=== PATIENT | female | born 1960 | race Caucasian/White ===

== ENCOUNTER 2019-12-29 16:18 | Outpatient (CLI) | payer BC, SELFPAY ==
--- NOTE | ~2019-12-29 | MM_ITS ---
EXAMINATION: MM screening [facility] BI w ava HISTORY: Screening TECHNIQUE: Craniocaudal and mediolateral oblique 3-D tomosynthesis images were obtained and synthetic 2-D images were generated. CAD analysis was submitted and interpreted. COMPARISON: Comparison to multiple prior studies sequentially, with oldest reviewed study dated 12/21. BREAST PARENCHYMAL COMPOSITION: The breasts are extremely dense, which lowers the sensitivity of mamm ography. FINDINGS: There is no evidence of suspicious mass, calcification, or architectural distortion to sugg est malignancy in either breast. There has been no suspicious interval change. IMPRESSION: 1. No mammographic evidence of malignancy. 2. Recommend routine screening mammography in one year. BI-RADS Category 1: Negative Reviewed, dictated and finalized at location A.
== END 2019-12-29 16:19 | disposition home or self-care (01) ==
PROVIDERS: PCP Family Medicine; Visit Provider Nurse Practitioner
DX: Z12.31 Encounter for screening mammogram for malignant neoplasm of breast (principal)
CPT/HCPCS: 77063; 77067

== ENCOUNTER 2021-01-07 07:57 | Outpatient (CLI) | payer BC, SELFPAY ==
--- NOTE | ~2021-01-07 | MM_ITS ---
EXAMINATION: MM screening [facility] BI w ava HISTORY: Screening mammogram TECHNIQUE: Craniocaudal and mediolateral oblique 3-D tomosynthesis images were obtained and synthetic 2-D images were generated. CAD analysis was submitted and interpreted. COMPARISON: No prior mammogram is available for comparison at this institution. BREAST PARENCHYMAL COMPOSITION: The breasts are extremely dense, which lowers the sensitivity of mamm ography. FINDINGS: There is no evidence of suspicious mass, calcification, or architectural distortion to sugg est malignancy in either breast. There has been no suspicious interval change. IMPRESSION: 1. No mammographic evidence of malignancy. 2. Recommend routine screening mammography in one year. BI-RADS Category 1: Negative Reviewed, dictated and finalized at location A.
== END 2021-01-07 07:58 | disposition home or self-care (01) ==
PROVIDERS: PCP Family Medicine; Visit Provider Nurse Practitioner
DX: Z12.31 Encounter for screening mammogram for malignant neoplasm of breast (principal)
CPT/HCPCS: 77063; 77067

== ENCOUNTER 2021-02-11 07:51 | Outpatient (CLI) | payer BC, SELFPAY ==
--- NOTE | ~2021-02-11 | DEXA_ITS ---
Bone Density Report Name: Christa Craft Age: 60 Sex: Female Ethnicity: White Date of : 1960 Indication: osteopenia; parental hip fracture; postmenopausal Referring Provider: Zohra, Nirmala Study: Bone densitometry was performed. Exam Date: February 11, 2021 Accession number: [id number] Bone Density: Region BMD T-score Z-score Classification AP Spine (L1-L4) 0.846 -1.8 -0.4 Osteopenia Femoral Neck (Left) 0.622 -2.0 -0.7 Osteopenia Total Hip (Left) 0.727 -1.8 -0.8 Osteopenia Total Hip Bilateral Avg 0.736 -1.7 -0.7 Osteopenia Femoral Neck (Right) 0.656 -1.7 -0.4 Osteopenia Total Hip (Right) 0.744 -1.6 -0.6 Osteopenia World Health Organization criteria for BMD impression classify patients as: Normal (T-score at or above -1.0), Osteopenia (T-score between -1.0 and -2.5), or Osteoporosis (T-score at or below -2.5). 10-year Fracture Risk(1): Major Osteoporotic Fracture 16% Hip Fracture 1.3% Reported Risk Factors: [place] (), Neck BMD=0.622, BMI=19.1, parental fracture (1) FRAX(R) Version 3.08. Fracture probability calculated for an untreated patient. Fracture probability may be lower if the patient has received treatment. Previous Exams: Region Exam Age BMD T-score BMD Change BMD Change Date g/cm2 vs Baseline vs Previous AP Spine(L1-L4) 02/11/2021 60 0.846 -1.8 -0.032(-3.6%)* -0.032(-3.6%)* 12/13/2018 58 0.877 -1.5 Total Hip(Left) 02/11/2021 60 0.727 -1.8 -0.059(-7.5%)* -0.059(-7.5%)* 12/13/2018 58 0.786 -1.3 Total Hip(Right) 02/11/2021 60 0.744 -1.6 -0.049(-6.2%)* -0.049(-6.2%)* 12/13/2018 58 0.794 -1.2 *Denotes significance at 95% confidence level, LSC for AP Spine = 0.022 g/cm2, LSC for Total Hip = 0.027 g/cm2 Clinical Information Provided by Patient: Parent has had a hip fracture Has used the following medications: Calcium Patient maximum height was 60 Menopause Age: 56 Drinks caffeinated beverages Onset of menses at age 13 Number of children 1 Impression: The patient has low bone mass, based on the Left Femoral Neck T-score. The patient has an estimated ten-year risk of hip fracture of 1.3% and an estimated ten-year risk of major fracture of 16%, based on the WHO FRAX algorithm. The patient has risk factors, including: parental hip fracture. The BMD for the AP Spine(L1-L4) decreased, changing by -3.6% since the last DXA exam. The BMD for the Total Hip(Left) decreased, changing by -7.5% since the las
== END 2021-02-11 07:52 | disposition home or self-care (01) ==
LOC: ANHIMG 07:56
PROVIDERS: PCP Family Medicine; Visit Provider Nurse Practitioner
DX: M85.88 Other specified disorders of bone density and structure, other site (principal); M85.852 Other specified disorders of bone density and structure, left thigh; M85.851 Other specified disorders of bone density and structure, right thigh
CPT/HCPCS: 77080

== ENCOUNTER 2022-02-17 08:24 | Outpatient (CLI) | payer BC, SELFPAY ==
--- NOTE | ~2022-02-17 | MM_ITS ---
EXAMINATION: MM screening [facility] BI w ava HISTORY: Screening mammogram TECHNIQUE: Craniocaudal and mediolateral oblique 3-D tomosynthesis images were obtained and synthetic 2-D images were generated. CAD analysis was submitted and interpreted. COMPARISON: 01/07/2021, 12/29/2019, 12/13/2018 BREAST PARENCHYMAL COMPOSITION: The breasts are heterogeneously dense, which may obscure small masses . FINDINGS: No suspicious mass, calcification, or architectural distortion are identified in either xu ast to suggest malignancy. There has been no suspicious interval change. IMPRESSION: 1. No mammographic evidence of malignancy. 2. Recommend routine screening mammography in one year. BI-RADS Category 1: Negative Reviewed, dictated and finalized at location A. ES ASSISTANT
== END 2022-02-17 08:25 | disposition home or self-care (01) ==
LOC: ANHIMG 08:26
PROVIDERS: PCP Family Medicine; Visit Provider Nurse Practitioner
DX: Z12.31 Encounter for screening mammogram for malignant neoplasm of breast (principal)
CPT/HCPCS: 77063; 77067

== ENCOUNTER 2023-04-09 08:12 | Outpatient (CLI) | payer BC, SELFPAY ==
--- NOTE | ~2023-04-09 | MM_ITS ---
EXAMINATION: MM screening [facility] BI w ava HISTORY: Screening TECHNIQUE: Craniocaudal and mediolateral oblique 3-D tomosynthesis images were obtained and synthetic 2-D images were generated. CAD analysis was submitted and interpreted. COMPARISON: Comparison to multiple prior studies sequentially, with oldest reviewed study dated 12/01. BREAST PARENCHYMAL COMPOSITION: The breasts are extremely dense, which lowers the sensitivity of mamm ography FINDINGS: There is no evidence of suspicious mass, calcification, or architectural distortion to sugg est malignancy in either breast. There has been no suspicious interval change. IMPRESSION: 1. No mammographic evidence of malignancy. 2. Recommend routine screening mammography in one year. BI-RADS Category 1: Negative Reviewed, dictated and finalized at location A. ING MACHINE OPERATOR
== END 2023-04-09 08:13 | disposition home or self-care (01) ==
PROVIDERS: PCP Family Medicine; Visit Provider Nurse Practitioner
DX: Z12.31 Encounter for screening mammogram for malignant neoplasm of breast (principal)
CPT/HCPCS: 77063; 77067

== ENCOUNTER 2024-05-17 15:07 | Outpatient (CLI) | payer BC, SELFPAY ==
--- NOTE | ~2024-05-17 | MM_ITS ---
EXAMINATION: MM screening padilla BI w ava HISTORY: Screening mammogram TECHNIQUE: Craniocaudal and mediolateral oblique 3-D tomosynthesis images were obtained and synthetic 2-D images were generated. CAD analysis was submitted and interpreted. COMPARISON: 04/09/2023, 02/17/2022, 01/07/2021, 12/29/2019 BREAST PARENCHYMAL COMPOSITION:Dense: The breasts are extremely dense, which lowers the sensitivity o f mammography. FINDINGS: No suspicious mass, calcification, or architectural distortion are identified in either xu ast to suggest malignancy. There has been no suspicious interval change. IMPRESSION: No mammographic evidence of malignancy. Recommend routine screening mammography in one year. BI-RADS Category 1: Negative Reviewed, dictated and finalized at location . TECHNICIAN
--- OUTSIDE RECORDS SUMMARY | 2024-05-17 17:38 | XMS_ITS | Encounter Summary ---
Author Organization [facility] Address [address] [place] [address] Care Team Providers Care Floor Finisher Helper Name Role Phone Remberto Esparza MD Primary Care Provider [phone] Encounter Details Date Type Department Care Team (Late st Contact Info) Description 02/25/2024 Lab Requisition [facility] - DermPath Lab [address] [place] [id number] Mary Poon MD [address] [facility] [facility] [address] [place] [address] Social History Tobacco Use Types Packs/Day Years Used Date Smoking Tobacco: Never Smokeless Tobacco: Never Sex and Gender Information Value Date Recorded Sex Assigned at Not on file Gender Identity Not on file Sexual Orientation Not on file documented as of this encounter Plan of Treatment Not on file documented as of this encounter Procedures Procedure Name Priority Date/Time Associated Diagnosis Comments DERMATOPATHOLOGY Routine 02/25/2024 10:2 2 AM THEATER EDUCATION TEACHER documented in this encounter Results * DERMATOPATHOLOGY (02/25/2024 10:22 AM THEATER EDUCATION TEACHER) Case Report Dermatopathology Report Case: [id number] Authorizing Provider: Mary Poon MD Collected: 02/25/2024 10:22 AM Ordering Location: [facility] - Received: 02/26/2024 06:52 AM DermPath Lab Pathologist: Stephani Zayas MD Specimen: Skin, left chest 11:26 AM THEATER EDUCATION TEACHER DERMATOPATHOLOGY LABORATORY Final Diagnosis Specimen A. SKIN, left chest: LICHEN PLANUS-LIKE KERATOSIS (BENIGN LICHENOID KERATOSIS) (L82.1) 11:[address] [facility] DERMATOPATHOLOGY LABORATORY Clinical History R/O BCC 11:[address] [facility] DERMATOPATHOLOGY LABORATORY Gross Description Specimen A: Received is one formalin filled container labeled with the patient's name and designated left chest. The specimen consists of a shave biopsy measuring 4x4x1 mm. Jar 0. 11:[address] [facility] DERMATOPATHOLOGY LABORATORY Microscopic Description Specimen A. SKIN, left chest: The epidermis is mildly acanthotic. There is a lichenoid infiltrate with vacuolar changes of basilar keratinocytes and scattered necrotic keratinocytes. 11:[address] [facility] DERMATOPATHOLOGY LABORATORY Disclaimer An external and internal positive and negative controls are appropriate for the histochemical, immunohistochemical and immunofluorescence stain(s) in this case (if any), except where stated explicitly. The performance characteristics of the stain(s) cited in this report were developed and its performance characteristic determined by the Dermatopathology Laboratory at [facility], directed by Dr. Yareli Parks. These tests need not be, and therefore are not, approved by the [place] Food and Drug Administration. The tests are used for clinical purposes. Billing Codes Specimen Charges Stain Charges 22660 1 11:[address] [facility] DERMATOPATHOLOGY LABORATORY Embedded Images 11:[address] [facility] DERMATOPATHOLOGY LABORATORY Pathology/Cytolo gy TISSUE SPECIMEN FROM SKIN / Unknown 02/25/2024 10:22 AM THEATER EDUCATION TEACHER 02/26/2024 6:[address] [facility] Mary Poon MD LAB - PATHOLOGY/CYTO LOGY ORDERABLES DERMATOPATHOLOGY LABORATORY [facility] - Department of Dermatology [address], [address] [phone] documented in this encounter Visit Diagnoses Not on filedocumented in this encounter Care Teams Floor Finisher Helper Relationship Specialty Start Date End Date Remberto Esparza MD [address] [place] [address] PCP - General Family Medicine 01/27/17 documented as of this encounter
--- OUTSIDE RECORDS SUMMARY | 2024-05-17 17:38 | XMS_ITS | Patient Health Summary ---
Author Organization [facility] Address [address] [place] [address] Care Team Providers Care Automatic I Threading Machine Feeder Name Role Phone Remberto Esparza MD Primary Care Provider [phone] Note from [facility] [place],non-owned Affiliates and Associated Physician Practices is amultiple site organization consisting of ambulatory clinics and hospital sitesin [place], [place], [place] and [place]. This disclosure is being madepursuant to the Care Everywhere program and may not contain all information available regarding this patient. Last updated 17.[facility] [employer] Allergies * Ciprofloxacin(Dizziness) Medications Be aware that medications may not be up to date on this document. Always verify current medications with the patient. No known medications Social History Tobacco Use Types Packs/Day Years Used Date Smoking Tobacco: Never Smokeless Tobacco: Never Sex and Gender Information Value Date Recorded Sex Assigned at Not on file Gender Identity Not on file Sexual Orientation Not on file Last Filed Vital Signs Vital Sign Reading Time Taken Comments Blood Pressure 120/62 06/15/2018 9:36 AM CDT Pulse 90 06/15/2018 9:36 AM CDT Temperature 37.1 C (98.7 F) 06/15/2018 9:36 AM CDT Respiratory Rate 16 06/15/2018 9:36 AM CDT Oxygen Saturation 99% 06/15/2018 9:36 AM CDT Inhaled Oxygen Concentration - - Weight 45.4 kg (100 lb) 06/15/2018 9:36 AM CDT Height 152.4 cm (5') 06/15/2018 9:36 AM CDT Body Mass Index 19.53 06/15/2018 9:36 AM CDT Procedures * DERMATOPATHOLOGY(Performed 02/25/2024) * DERMATOPATHOLOGY(Performed 07/25/2021) * URINALYSIS AUTO - POINT OF CARE (AMB) STL(Performed 06/15/2018) Performed for Acute cystitis with hematuria * CULTURE URINE(Performed 06/15/2018) Performed for Acute cystitis with hematuria * STREP A SCREEN - POINT OF CARE (AMB) STL(Performed 03/30/2018) Performed for Acute serous otitis media of left ear, recurrence not specified * SKIN TEST PPD - POINT OF CARE(Performed 01/07/2018) Performed for Encounter for PPD test Results * DERMATOPATHOLOGY (02/25/2024 10:22 AM [facility]) Only the most recent of2 resultswithin the time period is included. Case Report Dermatopathology Report Case: [id number] Authorizing Provider: Mary Poon MD Collected: 02/25/2024 10:22 AM Ordering Location: [facility] - Received: 02/26/2024 06:52 AM DermPath Lab Pathologist: Stephani Zayas MD Specimen: Skin, left chest 11:26 AM [facility] DERMATOPATHOLOGY LABORATORY Final Diagnosis Specimen A. SKIN, left chest: LICHEN PLANUS-LIKE KERATOSIS (BENIGN LICHENOID KERATOSIS) (L82.1) 11:26 AM [facility] DERMATOPATHOLOGY LABORATORY Clinical History R/O BCC 11:26 AM [facility] DERMATOPATHOLOGY LABORATORY Gross Description Specimen A: Received is one formalin filled container labeled with the patient's name and designated left chest. The specimen consists of a shave biopsy measuring 4x4x1 mm. Jar 0. 11:26 AM [facility] DERMATOPATHOLOGY LABORATORY Microscopic Description Specimen A. SKIN, left chest: The epidermis is mildly acanthotic. There is a lichenoid infiltrate with vacuolar changes of basilar keratinocytes and scattered necrotic keratinocytes. 11:26 AM [facility] DERMATOPATHOLOGY LABORATORY Disclaimer An external and internal positive and negative controls are appropriate for the histochemical, immunohistochemical and immunofluorescence stain(s) in this case (if any), except where stated explicitly. The performance characteristics of the stain(s) cited in this report were developed and its performance characteristic determined by the Dermatopathology Laboratory at [facility], directed by Dr. Yareli Parks. These tests need not be, and therefore are not, approved by the [place] Food and Drug Administration. The tests are used for clinical purposes. Billing Codes Specimen Charges Stain Charges 50182 1 4 11:26 AM BELL HOLE DIGGER DERMATOPATHOLOGY LABORATORY Embedded Images 4 11:26 AM [facility] DERMATOPATHOLOGY LABORATORY Pathology/Cytolo gy TISSUE SPECIMEN FROM SKIN / Unknown 02/25/2024 10:22 AM BELL HOLE DIGGER 02/26/2024 6:52 AM BELL HOLE DIGGER Mary Poon MD LAB - PATHOLOGY/CYTO LOGY ORDERABLES DERMATOPATHOLOGY LABORATORY [facility] Department of Dermatology [address], [address] [phone] * URINALYSIS AUTO - POINT OF CARE (AMB) STL (06/15/2018 9:50 AM CDT) Clarity UA POCT clear Color UA POCT yellow Leukocyte UA 70+ Negative Nitrite UA POCT negative Negative Urobilinogen UA 0.2 0.1 - 1.0 Protein UA POCT trace Negative pH UA 6.5 5.0 - 8.0 pH units Blood UA 5-10 Negative Specific [place] UA POCT 1.005 1.002 - 1.030 Ketone UA negative Negative Bilirubin UA POCT negative Negative Glucose UA negative Negative Expiration Date 12 13 2019 Lot # [id number] QC Verified Yes Yes Urine URINE / Unknown 06/15/2018 9 :50 AM CDT Carroll Hoover APRN-SHARON LAB - POINT OF CA RE ORDERABLES * (ABNORMAL) CULTURE URINE (06/15/2018 9:50 AM CDT) Urine Culture Routine Final report(A) [facility] INSURANCE BILL Result 1 Escherichia coli(A) [facility] INSURANCE BILL Comment: 25,000-50,000 colony forming units per mL Cefazolin <=4 ug/mL Cefazolin with an NICK <=16 predicts susceptibility to the oral agents cefaclor, cefdinir, cefpodoxime, cefprozil, cefuroxime, cephalexin, and loracarbef when used for therapy of uncomplicated urinary tract infections due to E. coli, Klebsiella pneumoniae, and Proteus mirabilis. Antimicrobial Susceptibility [facility] INSURANCE BILL Comment: S = Susceptible; I = Intermediate; R = Resistant P = Positive; N = Negative MICS are expressed in micrograms per mL Antibiotic RSLT#1 RSLT#2 RSLT#3 RSLT#4 Amoxicillin/Clavulanic Acid S Ampicillin S Cefepime S Ceftriaxone S Cefuroxime S Ciprofloxacin S Ertapenem S Gentamicin S Imipenem S Levofloxacin S Meropenem S Nitrofurantoin S Piperacillin/Tazobactam S Tetracycline S Tobramycin S Trimethoprim/Sulfa S Urine URINE SPECIMEN OBTAINED BY CLEAN CATCH PROCEDURE / Unknown 06/15/2018 9:50 AM CDT 06/15/2018 Narrative Resulting Agency Comment [facility] [address] [id number] Carroll FONTENOT LAB - MICROBIOLOG Y ORDERABLES [facility] INSURANCE BILL [address] [place] [address] * STREP A SCREEN - POINT OF CARE (AMB) STL (03/30/2018 10:42 AM BELL HOLE DIGGER) Strep A Rapid POCT Negative Negative Strep A Internal Control Present Lot # [id number] Expiration Date Throat ENTIRE THROAT (SURFACE REGION OF NECK) / Unknown 03/30/2018 10:42 AM BELL HOLE DIGGER Carroll FONTENOT LAB - POINT OF CA RE ORDERABLES * SKIN TEST PPD - POINT OF CARE (01/07/2018 11:38 AM CDT) PPD 0mm normal, ppd placed on 01/05/18 @ 10am, ppd read on 01/07/18 @ 11:36am Other MISCELLANEOUS SAMPLE S / Unknown 01/07/2018 11:38 AM CDT Meaghan Gentile CAR CARDER-ACTUARY MANAGER LAB - POINT OF CA RE ORDERABLES Care Teams Automatic I Threading Machine Feeder Relationship Specialty Start Date End Date Remberto Esparza MD [address] [place] [address] PCP - General Family Medicine 01/27/17
--- OUTSIDE RECORDS SUMMARY | 2024-05-17 17:38 | XMS_ITS | Clinical Summary ---
Author Organization [facility] Address [address] [place] [address] Care Team Providers Care Recovery Analyst Name Role Phone Remberto Esparza MD Primary Care Provider Source Comments [facility],non-owned Affiliates and Associated Physician Practices is amultiple site organization consisting of ambulatory clinics and hospital sitesin [place], [place] and [place]. This disclosure is being madepursuant to the Care Everywhere program and may not contain all information available regarding this patient. Last updated 17.[facility] Allergies Active Allergy Reactions Criticality Noted Date Comments Ciprofloxacin Dizziness 06/15/2018 Elevated heart rate and dizziness Medications Be aware that medications may not be up to date on this document. Always verify current medications with the patient. No known medications Encounters Date Type Department Care Team Description 02/25/2024 Lab Requisition [facility] - DermPath Lab [address] [place] [phone] Mary Poon MD from Last 3 Months Family History Medical History Relation Name Comments Cancer - Lung Father Relation Name Status Comments Father Social History Tobacco Use Types Packs/Day Years [...] Mass Index 19.53 06/15/2018 9:36 AM CDT Plan of Treatment Health Maintenance Due Date Last Done Comments COLOGUARD (AGES 45-75) - COL ON CA SCREENING 1960 COLON MONITORING 1960 COLONOSCOPY - COLON CA SCREENING 1960 CT COLONOGRAPHY - COLON CA SCREENING 1960 Colorectal Cancer Screening 1960 FIT - COLON CA SCREENING 1960 FLEX SIG - COLON CA SCREENING 1960 LIPID TESTING 1960 MAMMOGRAM 1960 PAP SMEAR 1960 HIV SCREENING 06/26/1975 HEPATITIS C SCREENING 06/21/1978 DTAP/TDAP/TD VACCINES (1 - Tdap) 06/26/1979 PNEUMOCOCCAL VACCINE 50+ (1 of 1 - PCV) 2010 ZOSTER VACCINE (1 of 2) 2010 COVID-19 VACCINE ( - 2023-2 5 season) 2023 INFLUENZA VACCINE (#1) 2023 DEPRESSION SCREENING 03/23/2024 Respiratory Syncytial Virus (RSV) Vaccine Pt: or over 60 yrs (1 - 1-dose 75+ series) 06/26/2035 HEPATITIS B VACCINE Aged Out No longe r eligible based on patient's age to complete this topic HIB VACCINE Aged Out No longer eligi ble based on patient's age to complete this topic HPV VACCINE Aged Out No longer eligi ble based on patient's age to complete this topic MENINGOCOCCAL (Group B) VACCINE Aged Out No longer eligible based on patient's age to complete this topic MENINGOCOCCAL VACCINE Aged Out No dino juliet eligible based on patient's age to complete this topic PNEUMOCOCCAL VACCINE Aged Out No long er eligible based on patient's age to complete this topic Procedures Procedure Name Priority Date/Time Associated Diagnosis Comments DERMATOPATHOLOGY Routine 02/25/2024 10:2 2 AM DEVELOPMENTAL SPECIALIST from Last 3 Months Results * DERMATOPATHOLOGY (02/25/2024 10:22 AM [facility]) Case Report Dermatopathology Report Case: [id number] Authorizing Provider: Mary Poon MD Collected: 02/25/2024 10:22 AM Ordering Location: [facility] - Received: 02/26/2024 06:52 AM DermPath Lab Pathologist: Stephani Zayas MD Specimen: Skin, left chest 11:26 AM [facility] DERMATOPATHOLOGY LABORATORY Final Diagnosis Specimen A. SKIN, left chest: LICHEN PLANUS-LIKE KERATOSIS (BENIGN LICHENOID KERATOSIS) (L82.1) 11:26 AM [facility] DERMATOPATHOLOGY LABORATORY Clinical History R/O BCC 11:26 AM [facility] DERMATOPATHOLOGY LABORATORY Gross Description Specimen A: Received is one formalin filled container labeled with the patient's name and designated left chest. The specimen consists of a shave biopsy measuring 4x4x1 mm. Jar 0. 11:26 AM [facility] DERMATOPATHOLOGY LABORATORY Microscopic Description Specimen A. SKIN, left chest: The epidermis is mildly acanthotic. There is a lichenoid infiltrate with vacuolar changes of basilar keratinocytes and scattered necrotic keratinocytes. 11:26 AM [facility] DERMATOPATHOLOGY LABORATORY Disclaimer An external and internal positive and negative controls are appropriate for the histochemical, immunohistochemical and immunofluorescence stain(s) in this case (if any), except where stated explicitly. The performance characteristics of the stain(s) cited in this report were developed and its performance characteristic determined by the Dermatopathology Laboratory at [facility], directed by Dr. Yareli Parks. These tests need not be, and therefore are not, approved by the [place] Food and Drug Administration. The tests are used for clinical purposes. Billing Codes Specimen Charges Stain Charges 01140 1 11:26 AM [facility] DERMATOPATHOLOGY LABORATORY Embedded Images 11:26 AM [facility] DERMATOPATHOLOGY LABORATORY Pathology/Cytolo gy TISSUE SPECIMEN FROM SKIN / Unknown 02/25/2024 10:22 AM DEVELOPMENTAL SPECIALIST 02/26/2024 6:52 AM DEVELOPMENTAL SPECIALIST Mary Poon MD LAB - PATHOLOGY/CYTO LOGY ORDERABLES DERMATOPATHOLOGY LABORATORY [facility] - Department of Dermatology [address] [place] [address], [facility] [phone] from Last 3 Months Care Teams Recovery Analyst Relationship Specialty Start Date End Date Remberto Esparza MD [address] [place] [id number] PCP - General Family Medicine 01/27/17
--- OUTSIDE RECORDS SUMMARY | 2024-05-17 17:38 | XMS_ITS | Referral Summary ---
Author Organization [facility] Address [address] [place] [address] Care Team Providers Care Administrative Office Clerk Name Role Phone Remberto Esparza MD Primary Care Provider [phone] Source Comments [facility],non-owned Affiliates and Associated Physician Practices is amultiple site organization consisting of ambulatory clinics and hospital sitesin [place], [place], [place] and [place]. This disclosure is being madepursuant to the Care Everywhere program and may not contain all information available regarding this patient. Last updated 17.[facility] Encounters Date Type Department Care Team Description 02/25/2024 Lab Requisition [facility] - DermPath Lab [address], [place] [address] Mary Poon MD from Last 3 Months Allergies Active Allergy Reactions Criticality Noted Date [...] 06/15/2018 9:36 AM CDT Plan of Treatment Not on file Procedures Procedure Name Priority Date/Time Associated Diagnosis Comments DERMATOPATHOLOGY Routine 02/25/2024 10:2 2 AM POWER STATION OPERATOR from Last 3 Months Results * DERMATOPATHOLOGY (02/25/2024 10:22 AM POWER STATION OPERATOR) Case Report Dermatopathology Report Case: [id number] Authorizing Provider: Mary Poon MD Collected: 02/25/2024 10:22 AM Ordering Location: [facility] - Received: 02/26/2024 06:52 AM DermPath Lab Pathologist: Stephani Zayas MD Specimen: Skin, left chest 11:26 AM [facility] Final Diagnosis Specimen A. SKIN, left chest: LICHEN PLANUS-LIKE KERATOSIS (BENIGN LICHENOID KERATOSIS) (L82.1) 11:26 AM [facility] Clinical History R/O BCC 11:26 AM [facility] Gross Description Specimen A: Received is one formalin filled container labeled with the patient's name and designated left chest. The specimen consists of a shave biopsy measuring 4x4x1 mm. Jar 0. 11:26 AM [facility] Microscopic Description Specimen A. SKIN, left chest: The epidermis is mildly acanthotic. There is a lichenoid infiltrate with vacuolar changes of basilar keratinocytes and scattered necrotic keratinocytes. 11:26 AM [facility] Disclaimer An external and internal positive and negative controls are appropriate for the histochemical, immunohistochemical and immunofluorescence stain(s) in this case (if any), except where stated explicitly. The performance characteristics of the stain(s) cited in this report were developed and its performance characteristic determined by the Dermatopathology Laboratory at [facility], directed by Dr. Yareli Parks. These tests need not be, and therefore are not, approved by the [place] Food and Drug Administration. The tests are used for clinical purposes. Billing Codes Specimen Charges Stain Charges 82560 1 4 11:26 AM [facility]ERMAT[facility] Embedded Images 11:26 AM POWER STATION OPERATOR DERMATOPATHOLOGY LABORATORY Pathology/Cytolo gy TISSUE SPECIMEN FROM SKIN / Unknown 02/25/2024 10:22 AM POWER STATION OPERATOR 02/26/2024 6:52 AM POWER STATION OPERATOR Mary Poon MD LAB - PATHOLOGY/CYTO LOGY ORDERABLES DERMATOPATHOLOGY LABORATORY [facility] - Department of Dermatology [address], [address] [phone] from Last 3 Months Administered Medications Care Teams Administrative Office Clerk Relationship Specialty Start Date End Date Remberto Esparza MD [address] [place] [id number] PCP - General Family Medicine 01/27/17
== END 2024-05-17 15:08 | disposition home or self-care (01) ==
PROVIDERS: PCP Family Medicine; Visit Provider Nurse Practitioner Women's Health
DX: Z12.31 Encounter for screening mammogram for malignant neoplasm of breast (principal)
CPT/HCPCS: 77063; 77067